=== PATIENT | female | born 1945 | race Caucasian/White ===

== ENCOUNTER 2025-05-23 14:10 | Outpatient (CLI) | payer MEDICARE, SELFPAY ==
[2025-05-23 14:42] LABS: Basophils Absolute Auto 0.05 K/mm3 (0.00-0.10); Basophils Percent Auto 0.6 % (0.0-1.0); Eosinophils Absolute Auto 0.34 K/mm3 (0.02-0.50); Eosinophils Percent Auto 3.9 % (1.0-6.0); Hematocrit 36.3 % (35.0-42.0); Hemoglobin 11.3 g/dL (11.7-13.8); Immature Granulocyte Absolute 0.03 K/mm3 (0.00-0.00); Immature Granulocyte Percent A 0.3 % (0.0-0.0); Lymphocytes Absolute Auto 1.85 K/mm3 (1.10-4.50); Mean Corpuscular HGB Conc 31.1 g/dL (32-36); Mean Corpuscular Hemoglobin 29.4 pg (27.0-31.0); Mean Corpuscular Volume 94.5 fL (78.0-102.0); Monocytes Absolute Auto 0.72 K/mm3 (0.10-0.90); Monocytes Percent Auto 8.2 % (2.0-11.0); Neutrophils Absolute Auto 5.81 K/mm3 (1.70-7.20); Platelet Count Result 212 K/mm3 (150-420); Red Blood Count 3.84 M/mm3 (4.20-5.40); Red Cell Distribution Width 13.1 % (11.6-14.4); White Blood Count 8.8 K/mm3 (4.8-10.8)
[2025-05-23 16:12] LABS: Alanine Aminotransferase 12 U/L (6-35); Albumin Level 4.2 g/dL (3.5-5.1); Alkaline Phosphatase 99 U/L (38-126); Anion Gap 4 mmol/L (4-12); Aspartate Amino Transferase 18 U/L (14-36); Bilirubin,Total 0.6 mg/dL (0.2-1.3); Blood Urea Nitrogen 33 mg/dL (7-17); Calcium 9.6 mg/dL (8.4-10.2); Carbon Dioxide 31 mmol/L (22-30); Chloride 105 mmol/L (98-107); Cholesterol 159 mg/dL (0-200); Estimated Glomerular Filt Rate 42; Glucose 92 mg/dL (65-110); HDL Direct 69 mg/dL; LDL Cholesterol Calculated 69 mg/dL (<130); Osmolality Calculated 297 mOsm/kg (285-295); Potassium 4.8 mmol/L (3.4-5.0); Sodium 140 mmol/L (137-145); Total Protein 6.4 g/dL (6.3-8.2); Triglycerides 104 mg/dL (<150)
[2025-05-23 17:19] LABS: Folic Acid > 20.0 ng/mL (2.76->20)
== END 2025-05-23 14:11 | disposition home or self-care (01) ==
PROVIDERS: PCP Family Medicine; Visit Provider Family Medicine
DX: I10 Essential (primary) hypertension (principal); E03.9 Hypothyroidism, unspecified; D51.0 Vitamin B12 deficiency anemia due to intrinsic factor deficiency
CPT/HCPCS: 36415; 80053; 80061; 82607; 82746; 84443; 85025

== ENCOUNTER 2025-08-08 13:37 | Outpatient (CLI) | payer MEDICARE, SELFPAY ==
--- NOTE | ~2025-08-08 | XR_ITS ---
Lumbar spine series Indication: Chronic low back pain Comparison: None Technique: 3 views lumbar spine lumbar spine Findings: Pedicle screw and maryan fixation L4-5 with interbody spacer. 5 nonrib-bearing lumbar-type vertebral bodies. No acute fracture. No listhesis. Vertebral bodies normal height. Disc disease L3-4. Mild degenerative changes. SI joints congruent. Sacrum intact. Aortoiliac atherosclerotic disease. IMPRESSION: 1. No acute findings. Reviewed, dictated and finalized at location R. IMPRESSION: 1. No acute findings.
--- NOTE | ~2025-08-08 | XR_ITS ---
EXAMINATION: XR chest 2V 08/08/2025 14:03 INDICATION: Chronic back pain. Heart murmur. PROCEDURE: 2 view chest COMPARISON: No prior studies for comparison. FINDINGS: The lungs are clear. The cardiomediastinal silhouette is within normal limits. There are no pleural effusions. There is no pneumothorax suspected. IMPRESSION: 1: NO ACUTE CARDIOPULMONARY DISEASE. Reviewed, dictated and finalized at location O.
== END 2025-08-08 13:38 | disposition home or self-care (01) ==
LOC: CHSIMG 13:39
PROVIDERS: PCP Internal Medicine; Visit Provider Internal Medicine
DX: R01.1 Cardiac murmur, unspecified (principal); M54.50 Low back pain, unspecified; R09.89 Other specified symptoms and signs involving the circulatory and respiratory systems; I10 Essential (primary) hypertension; M81.0 Age-related osteoporosis without current pathological fracture
CPT/HCPCS: 71046; 72100

== ENCOUNTER 2025-08-25 12:33 | Outpatient (CLI) | payer MEDICARE, SELFPAY ==
--- NOTE | ~2025-08-25 | US_ITS ---
Clinical History: OSTEPOROSIS, CAROTID BRUIT, LOW BACK PAIN Examination: US carotid duplex BI Comparison: None Technique: Grayscale, color, duplex/spectral Doppler sonography carotid and vertebral arteries. Distal CCA and Peak ICA systolic velocities provided. Society of Radiologists in Ultrasound (SRU) consensus criteria utilized, indirectly assessing stenosis by velocities. Findings: Minimal plaque. Right side: CCA - 80 cm/sec. ICA - 100 cm/sec. ICA/CCA - 1.25 Left Side: CCA - 104 cm/sec. ICA - 113 cm/sec. ICA/CCA - 1.1 Normal antegrade flow measured bilateral vertebral arteries. IMPRESSION: 1. No hemodynamically significant ICA stenosis (i.e., if any stenosis, less than 50%). 2. Normal bilateral antegrade vertebral artery flow. Stenosis measured by Society of Radiologists in Ultrasound (SRU) criteria. Reviewed, dictated and finalized at location R. IMPRESSION: 1. No hemodynamically significant ICA stenosis (i.e., if any stenosis, less th an 50%). 2. Normal bilateral antegrade vertebral artery flow. Stenosis measured by Society of Radiologists in Ultrasound (SRU) criteria.
--- NOTE | ~2025-08-25 | DEXA_ITS ---
Bone Density Report Name: NYLA VALLES Age: 80 Sex: Female Ethnicity: White Date of : 1945 Indication: postmenopausal; screening for osteoporosis; Referring Provider: hCandler Chow Study: Bone densitometry was performed. Exam Date: August 25, 2025 Accession number: [id number] Bone Density: Region BMD T-score Z-score Classification AP Spine(L1, L2) 0.991 0.1 2.7 Normal Femoral Neck (Left) 0.760 -0.8 1.6 Normal Total Hip (Left) 1.030 0.7 2.9 Normal Femoral Neck (Right) 0.770 -0.7 1.7 Normal Total Hip (Right) 1.023 0.7 2.8 Normal Femoral Neck Mean 0.765 -0.8 1.6 Normal Total Hip Mean 1.027 0.7 2.8 Normal World Health Organization criteria for BMD impression classify patients as: Normal (T-score at or above -1.0), Osteopenia (T-score between -1.0 and -2.5), or Osteoporosis (T-score at or below -2.5). 10-year Fracture Risk: FRAX not reported because: All T-scores for Spine Total, Hip Total, Femoral Neck at or above -1.0 Treated for osteoporosis Clinical Information Provided by Patient: Is being treated for osteoporosis Has used the following medications: Vitamin D Patient maximum height was 62 Menopause Age: 49 No regular weight bearing exercise Does not regularly consume dairy products Drinks caffeinated beverages Onset of menses at age 11 Number of children 2 Impression: The patient has normal bone mass. Discussion: It is important to ask patients whether they are taking their medications and to encourage continued and appropriate compliance with their osteoporosis therapies to reduce fracture risk. It is also important to review their risk factors and encourage appropriate calcium and vitamin D intakes, exercise, fall prevention and other lifestyle measures. Follow-Up: Consider a repeat BMD and Vertebral Fracture Assessment (VFA) exam in 2 years or sooner if medically necessary, to reassess this patient's status. Reported by: DAVID on 08/25/2025 1:03:00 PM. Reviewed, dictated and finalized at location A.
--- NOTE | ~2025-08-25 | CT_ITS ---
EXAMINATION: CT lumbar spine wo con COMPARISON: None HISTORY: LOW BACK PAIN, OSTEOPOROSIS, CAROTID BRUIT TECHNIQUE: Axial images were obtained through the spine without IV contrast. Coronal, sagittal reconstruction images were obtained from the axial views. CT scan performed using dose optimization techniques including the following automated exposure control; adjustment of mA and/or kV; use of iterative reconstruction technique. Automatic exposure control was used to reduce radiation dose. Permanent radiation dose record is archived to PACS. FINDINGS: Mild dextroconvex scoliosis. No acute fracture or subluxation is identified. Bilateral pedicle screws and rods fixate L4 on L5, the hardware is intact with no lucency around the screws with disc prosthesis at this level. There is severe loss of disc height at L3-4 with moderate loss of disc height at L2-3 with disc osteophyte complex and facet hypertrophy producing severe canal and foraminal stenosis. The soft tissues demonstrate partially imaged left renal cyst 4 x 4 3 cm with renal calculi right kidney the largest 2 mm. Impression: Postsurgical and degenerative changes detailed above Reviewed, dictated and finalized at location P. Impression: Postsurgical and degenerative changes detailed above
== END 2025-08-25 12:34 | disposition home or self-care (01) ==
PROVIDERS: PCP Internal Medicine; Visit Provider Internal Medicine
DX: R01.1 Cardiac murmur, unspecified (principal); M54.50 Low back pain, unspecified; M81.0 Age-related osteoporosis without current pathological fracture; I10 Essential (primary) hypertension; Z98.890 Other specified postprocedural states; R09.89 Other specified symptoms and signs involving the circulatory and respiratory systems
CPT/HCPCS: 72131; 77080; 93880

== ENCOUNTER 2025-09-05 13:05 | Outpatient (CLI) | payer MEDICARE, SELFPAY ==
--- NOTE | 2025-09-05 13:16 | ECHO_ITS ---
Patient Info Name: Faye Mathur Age: 80 years : 1945 Gender: Female Ht: 62 in Wt: 182 lbs BSA: 1.94 m2 HR: 80 bpm BP: 208 / 82 mmHg Technical Quality: Good Exam Date: 09/05/2025 1:29 PM Patient Status: O Admit Date: 09/05/2025 Exam Type: CA echo doppler color flow Complete two-dimensional, color flow and Doppler transthoracic echocardiogram is performed. Roads Supervisor: Angie Cope Attending Provider: Chandler Chow MD Summary 1. Complete two-dimensional, color flow and Doppler transthoracic echocardiogram is performed. 2. Left ventricular chamber dimension is normal. 3. Left ventricular systolic function is normal, estimated at 60-65. 4. The left ventricular diastolic function is grade I diastolic dysfunction. 5. E/e' 11 is mildly elevated. 6. Left atrial chamber dimension is mildly enlarged. 7. There is mild aortic valve sclerosis. 8. There is trace mitral valve regurgitation. 9. There is trace tricuspid valve regurgitation. 10. No pulmonary hypertension, estimated pulmonary arterial systolic pressure is 28 mmHg. 11. There is trace pulmonic regurgitation. Left Ventricle E/e' 11 is mildly elevated. Left ventricular chamber dimension is normal. Left ventricular systolic function is normal, estimated at 60-65. The left ventricular diastolic function is grade I diastolic dysfunction. Right Ventricle Right ventricular chamber dimension is normal. Right ventricular systolic function is normal and with normal TAPSE 2.2 cm. Left Atria Left atrial chamber dimension is mildly enlarged. Right Atria Right atrial chamber dimension is normal. Aortic Valve The aortic valve is trileaflet. There is mild aortic valve sclerosis. There is no aortic valve stenosis. There is no aortic valve regurgitation. Pulmonic Valve There is trace pulmonic regurgitation. Mitral Valve There is no mitral valve stenosis. There is trace mitral valve regurgitation. Tricuspid Valve There is trace tricuspid valve regurgitation. No pulmonary hypertension, estimated pulmonary arterial systolic pressure is 28 mmHg. Pericardium/Pleural There is no pericardial effusion. Inferior Vena Cava Normal inferior vena cava with >50% collapse upon inspiration consistent with normal right atrial pressure, 5 mmHg. Aorta The aortic root size at the sinus of Valsalva is normal. Left Ventricular Outflow Tract Name Value Normal LVOT 2D LVOT Diameter 2.0 cm LVOT Doppler LVOT Peak Velocity 122 cm/s LVOT Peak Gradient 6 mmHg LVOT Mean Gradient 4 mmHg LVOT VTI 29 cm LVOT VTI/AV VTI Ratio 0.7 LVOT Stroke Volume 88 ml LVOT CO 7.1 l/min LVOT CI 3.6 l/min/m2 Pulmonic Valve Name Value Normal RVOT Doppler RVOT Peak Velocity 102 cm/s RVOT Peak Gradient 4 mmHg PV Doppler PV Peak Velocity 106 cm/s PV Peak Gradient 4 mmHg Mitral Valve Name Value Normal MV Diastolic Function MV E Peak Velocity 92 cm/s MV A Peak Velocity 133 cm/s MV E/A 0.7 MV Decel Time (PW) 254 ms MV Annular TDI MV E/e' (Septal) 13.2 MV E/e' (Lateral) 9.7 MV E/e' (Average) 11.4 Tricuspid Valve Name Value Normal TV Regurgitation Doppler TR Peak Velocity 240 cm/s TR Peak Gradient 23 mmHg Estimated PAP/RSVP RA Pressure 5 mmHg <=5 PA Systolic Pressure 28 mmHg <36 RV Systolic Pressure 28 mmHg <36 Aortic Valve Name Value Normal AV Doppler AV Peak Velocity 156 cm/s AV Peak Gradient 10 mmHg AV Mean Gradient 5 mmHg AV VTI 39 cm AV Area (Cont Eq VTI) 2.3 cm2 >=3.0 AV Area (Cont Eq Som) 2.4 cm2 AV DI (Som) 0.78 AV Regurgitation 2D LVOT Area 3.1 cm2 Ventricles Name Value Normal LV Dimensions 2D/MM IVS Diastolic Thickness (2D) 1.1 cm 0.6-1.0 LVID Diastole (2D) 4.4 cm 3.8-5.2 LVIW Diastolic Thickness (2D) 0.8 cm 0.6-0.9 LVID Systole (2D) 2.7 cm 2.2-3.5 LVOT Diameter 2.0 cm LV Mass (2D Cubed) 142.79 g 67.00-162.00 LV Mass Index (2D Cubed) 74 g/m2 43-95 Relative Wall Thickness (2D) 0.37 <=0.42 LV Fractional Shortening/Ejection Fraction 2D/MM LV Fractional Shortening (2D) 38 % 27-45 LV EF (2D Teichholz) 69 % LV Diastolic Volume (4C MOD) 85 ml LV EF (4C MOD) 68 % LV Diastolic Volume (2C MOD) 110 ml LV EF (2C MOD) 62 % LV Diastolic Volume (BP MOD) 99 ml 46-106 LV Diastolic Volume Index (BP MOD) 51 ml/m2 29-61 LV Systolic Volume (BP MOD) 33 ml 14-42 LV Systolic Volume Index (BP MOD) 17 ml/m2 8-24 LV EF (BP MOD) 66 % 54-74 LV Diastolic Length (4C) 7.6 cm LV Systolic Length (4C) 6.1 cm LV Stroke Volume (4C MOD) 57 ml Atria Name Value Normal LA Dimensions LA Volume (4C A-L) 28 ml LA Volume (BP A-L) 27 ml RA Dimensions RA Systolic Major Whiting Length (4C) 4.9 cm 2.2-2.8 RA Area (4C) 12.1 cm2 <=18.0 Report Signatures
== END 2025-09-05 13:06 | disposition home or self-care (01) ==
LOC: CHSIMG 13:08
PROVIDERS: PCP Internal Medicine; Visit Provider Internal Medicine
DX: R01.1 Cardiac murmur, unspecified (principal); M54.50 Low back pain, unspecified; M81.0 Age-related osteoporosis without current pathological fracture; I10 Essential (primary) hypertension; I35.8 Other nonrheumatic aortic valve disorders
CPT/HCPCS: 93306

== ENCOUNTER 2025-09-18 15:39 | Outpatient (CLI) | payer MEDICARE, SELFPAY ==
--- NOTE | ~2025-09-18 | XR_ITS ---
XR chest 2V 09/18/2025 16:00 Indication: Dyspnea Procedure: 2 view chest Comparison: 08/08/2025 Findings: Heart size upper normal. No focal air space disease, pulmonary edema, pleural effusion or suspected pneumothorax. No acute osseous abnormality. Impression: 1: No acute cardiopulmonary disease. Reviewed, dictated and finalized at location O. Impression: 1: No acute cardiopulmonary disease.
[2025-09-18 15:58] LABS: Hematocrit 33.7 % (35.0-42.0); Hemoglobin 10.5 g/dL (11.7-13.8); Mean Corpuscular HGB Conc 31.2 g/dL (32-36); Mean Corpuscular Hemoglobin 29.3 pg (27.0-31.0); Mean Corpuscular Volume 94.1 fL (78.0-102.0); Platelet Count Result 205 K/mm3 (150-420); Red Blood Count 3.58 M/mm3 (4.20-5.40); White Blood Count 9.4 K/mm3 (4.8-10.8)
[2025-09-18 16:09] LABS: Alanine Aminotransferase 15 U/L (6-35); Albumin Level 4.4 g/dL (3.5-5.1); Alkaline Phosphatase 104 U/L (38-126); Anion Gap 6 mmol/L (4-12); Aspartate Amino Transferase 24 U/L (14-36); Bilirubin,Total 0.5 mg/dL (0.2-1.3); Blood Urea Nitrogen 27 mg/dL (7-17); Calcium 10.0 mg/dL (8.4-10.2); Carbon Dioxide 31 mmol/L (22-30); Chloride 106 mmol/L (98-107); Creatine Kinase 78 U/L (30-135); Estimated Glomerular Filt Rate 43; Glucose 94 mg/dL (65-110); Osmolality Calculated 301 mOsm/kg (285-295); Potassium 4.9 mmol/L (3.4-5.0); Sodium 143 mmol/L (137-145); Total Protein 7.4 g/dL (6.3-8.2)
[2025-09-18 16:22] LABS: NT Pro B Type Natriuretic Pept 892 pg/mL (19.9-100); Troponin I < 0.012 ng/mL (0.000-0.034)
== END 2025-09-18 15:40 | disposition home or self-care (01) ==
LOC: CHSLAB 15:41
PROVIDERS: PCP Internal Medicine; Visit Provider Internal Medicine
DX: R06.00 Dyspnea, unspecified (principal); M79.89 Other specified soft tissue disorders
CPT/HCPCS: 36415; 71046; 80053; 82550; 82553; 83880; 84484; 85027; 85380

== ENCOUNTER 2025-09-19 09:20 | Outpatient (CLI) | payer MEDICARE, SELFPAY ==
--- NOTE | ~2025-09-19 | CT_ITS ---
EXAMINATION: CTA chest PE protocol, 09/19/2025 9:50 CDT HISTORY: SOB, + D Dimer, B/L LOWER EXREMITY SWELLING COMPARISON: No comparisons available. TECHNIQUE: CTA examination is obtained with contrast CTA examination technique is performed with arterial phase of contrast-enhancement. 3-D reconstruction with thin MIP axial and MPR coronal imaging is provided Isovue 300, 92cc injected IV. One or more of the following dose reduction techniques were used: automated exposure control, adjustment of the mA and/or kV according to patient size, use of iterative reconstruction technique. FINDINGS: No significant coronary calcification is present ([id number]) LUNGS: The contrast bolus is adequate, there is no pulmonary embolism identified. No tracheomalacia. No bronchiectasis. Minimal emphysematous changes. Minimal pulmonary fibrotic changes. No honeycombing noted. Apical scarring noted bilaterally. There are no areas of bullous formation identified. HEART AND PERICARDIUM: Mild cardiomegaly. AORTA: Normal caliber aorta.. PULMONARY ARTERIES: No pulmonary embolism ADENOPATHY/MEDIASTINUM: None. LIMITED VIEWS OF THE ABDOMEN: Partially imaged probable left renal cyst incompletely evaluated measures 4 x 4 cm. OSSEOUS STRUCTURES: No sclerotic or lytic lesions. OVERLYING SOFT TISSUES: Unremarkable. THYROID: The thyroid is unremarkable. IMPRESSION: 1. Negative for pulmonary embolism. No acute process identified Reviewed, dictated and finalized at location P.
--- NOTE | ~2025-09-19 | US_ITS ---
EXAMINATION:US venous doppler LE BI INDICATION:Shortness of breath. Pitting edema. TECHNIQUE: Multiple grayscale, color flow and Doppler images of the bilateral lower extremity deep venous systems were obtained and reviewed. COMPARISON:No prior studies for comparison. FINDINGS: The common femoral, superficial femoral and popliteal veins demonstrate normal respiratory variation, augmentation and compressibility. Color flow is also seen within the posterior tibial, peroneal, greater saphenous and profunda veins. IMPRESSION: 1: No lower extremity deep venous thrombosis. Reviewed, dictated and finalized at location O.
== END 2025-09-19 09:21 | disposition home or self-care (01) ==
PROVIDERS: PCP Internal Medicine; Visit Provider Internal Medicine
DX: R06.02 Shortness of breath (principal); R79.1 Abnormal coagulation profile; M79.89 Other specified soft tissue disorders
CPT/HCPCS: 71275; 93970; Q9967

== ENCOUNTER 2025-09-22 08:43 | Outpatient (CLI) | payer MEDICARE, SELFPAY ==
[2025-09-22 09:19] LABS: Anion Gap 7 mmol/L (4-12); Blood Urea Nitrogen 30 mg/dL (7-17); Calcium 9.5 mg/dL (8.4-10.2); Carbon Dioxide 37 mmol/L (22-30); Chloride 99 mmol/L (98-107); Estimated Glomerular Filt Rate 35; Glucose 125 mg/dL (65-110); Osmolality Calculated 303 mOsm/kg (285-295); Potassium 4.4 mmol/L (3.4-5.0); Sodium 143 mmol/L (137-145)
[2025-09-22 09:48] LABS: NT Pro B Type Natriuretic Pept 566 pg/mL (19.9-100)
== END 2025-09-22 08:44 | disposition home or self-care (01) ==
PROVIDERS: PCP Internal Medicine; Visit Provider Internal Medicine
DX: I50.9 Heart failure, unspecified (principal)
CPT/HCPCS: 36415; 80048; 83880

== ENCOUNTER 2025-09-29 09:20 | Outpatient (CLI) | payer MEDICARE, SELFPAY ==
[2025-09-29 09:47] LABS: Hematocrit 36.8 % (35.0-42.0); Hemoglobin 11.3 g/dL (11.7-13.8); Mean Corpuscular HGB Conc 30.7 g/dL (32-36); Mean Corpuscular Hemoglobin 29.0 pg (27.0-31.0); Mean Corpuscular Volume 94.6 fL (78.0-102.0); Platelet Count Result 225 K/mm3 (150-420); Red Blood Count 3.89 M/mm3 (4.20-5.40); White Blood Count 7.6 K/mm3 (4.8-10.8)
[2025-09-29 10:08] LABS: Anion Gap 9 mmol/L (4-12); Blood Urea Nitrogen 54 mg/dL (7-17); Calcium 9.4 mg/dL (8.4-10.2); Carbon Dioxide 39 mmol/L (22-30); Chloride 94 mmol/L (98-107); Estimated Glomerular Filt Rate 26; Glucose 118 mg/dL (65-110); Osmolality Calculated 309 mOsm/kg (285-295); Potassium 4.9 mmol/L (3.4-5.0); Sodium 142 mmol/L (137-145)
[2025-09-29 10:16] LABS: NT Pro B Type Natriuretic Pept 149 pg/mL (19.9-100)
== END 2025-09-29 09:21 | disposition home or self-care (01) ==
PROVIDERS: PCP Internal Medicine; Visit Provider Internal Medicine
DX: I50.9 Heart failure, unspecified (principal)
CPT/HCPCS: 36415; 80048; 83880; 85027

== ENCOUNTER 2025-10-19 08:12 | Outpatient (CLI) | payer MEDICARE, SELFPAY ==
[2025-10-19 08:45] LABS: Anion Gap 8 mmol/L (4-12); Blood Urea Nitrogen 35 mg/dL (7-17); Calcium 9.3 mg/dL (8.4-10.2); Carbon Dioxide 37 mmol/L (22-30); Chloride 100 mmol/L (98-107); Estimated Glomerular Filt Rate 40; Glucose 102 mg/dL (65-110); Osmolality Calculated 308 mOsm/kg (285-295); Potassium 4.3 mmol/L (3.4-5.0); Sodium 145 mmol/L (137-145)
[2025-10-19 08:53] LABS: NT Pro B Type Natriuretic Pept 357 pg/mL (19.9-100)
== END 2025-10-19 08:13 | disposition home or self-care (01) ==
LOC: CHSLAB 08:14
PROVIDERS: PCP Internal Medicine; Visit Provider Internal Medicine
DX: I50.9 Heart failure, unspecified (principal); N18.32 Chronic kidney disease, stage 3b
CPT/HCPCS: 36415; 80048; 83880

== ENCOUNTER 2025-11-17 09:09 | Outpatient (CLI) | payer MEDICARE, SELFPAY ==
[2025-11-17 09:38] LABS: Hematocrit 35.8 % (35.0-42.0); Hemoglobin 11.1 g/dL (11.7-13.8); Mean Corpuscular HGB Conc 31.0 g/dL (32-36); Mean Corpuscular Hemoglobin 29.1 pg (27.0-31.0); Mean Corpuscular Volume 93.7 fL (78.0-102.0); Platelet Count Result 200 K/mm3 (150-420); Red Blood Count 3.82 M/mm3 (4.20-5.40); White Blood Count 8.2 K/mm3 (4.8-10.8)
[2025-11-17 10:18] LABS: Anion Gap 6 mmol/L (4-12); Blood Urea Nitrogen 35 mg/dL (7-17); Calcium 9.7 mg/dL (8.4-10.2); Carbon Dioxide 34 mmol/L (22-30); Chloride 102 mmol/L (98-107); Estimated Glomerular Filt Rate 41; Glucose 99 mg/dL (65-110); Osmolality Calculated 302 mOsm/kg (285-295); Potassium 5.0 mmol/L (3.4-5.0); Sodium 142 mmol/L (137-145)
[2025-11-17 10:27] LABS: NT Pro B Type Natriuretic Pept 286 pg/mL (19.9-100)
== END 2025-11-17 09:10 | disposition home or self-care (01) ==
LOC: CHSLAB 09:11
PROVIDERS: PCP Internal Medicine; Visit Provider Internal Medicine
DX: I50.9 Heart failure, unspecified (principal); N18.30 Chronic kidney disease, stage 3 unspecified
CPT/HCPCS: 36415; 80048; 83880; 85027